=== PATIENT | male | born 1975 | race Caucasian/White ===

== ENCOUNTER 2020-03-03 16:26 | Emergency (ER) | payer BC, SELFPAY ==
[2020-03-03 16:28] VITALS: BP 156/107; PULSE 99; RESP 24; TEMP 36.9; O2SAT 98
[2020-03-03 16:49] LABS: Basophils Absolute Auto 0.03 K/mm3 (0.00-0.10); Basophils Percent Auto 0.4 % (0.0-1.0); Eosinophils Absolute Auto 0.05 K/mm3 (0.02-0.50); Eosinophils Percent Auto 0.7 % (1.0-6.0); Hematocrit 46.7 % (40.0-54.0); Hemoglobin 16.5 g/dL (14.0-18.0); Immature Granulocyte Absolute 0.02 K/mm3 (0.00-0.00); Immature Granulocyte Percent A 0.3 % (0.0-0.0); Lymphocytes Absolute Auto 3.55 K/mm3 (1.10-4.50); Lymphocytes Percent Auto 49.9 % (18.0-42.0); Mean Corpuscular HGB Conc 35.3 g/dL (32.0-36.0); Mean Corpuscular Hemoglobin 32.7 pg (27.0-31.0); Mean Corpuscular Volume 92.5 fL (78.0-102.0); Monocytes Absolute Auto 0.75 K/mm3 (0.10-0.90); Monocytes Percent Auto 10.5 % (2.0-11.0); Neutrophils Absolute Auto 2.7 K/mm3 (1.7-7.2); Neutrophils Percent Auto 38.2 % (50.0-70.0); Platelet Count Result 200 K/mm3 (150-420); Red Blood Count 5.05 M/mm3 (4.70-6.10); Red Cell Distribution Width 14.1 % (11.6-14.4); White Blood Count 7.1 K/mm3 (4.8-10.8)
[2020-03-03] MEDS: SODIUM CHLORIDE 0.9% IV 1,000 ML 999 ML IV CONT (16:57)
[2020-03-03 17:13] LABS: Alanine Aminotransferase 100 U/L (16-63); Albumin Level 4.1 g/dL (3.4-5.0); Alkaline Phosphatase 69 U/L (46-116); Anion Gap 14.6 mmol/L (7-16); Aspartate Amino Transferase 75 U/L (15-37); Bilirubin,Total 0.3 mg/dL (0.00-1.00); Blood Urea Nitrogen 6 mg/dL (7-18); Calcium 8.1 mg/dL (8.5-10.1); Carbon Dioxide 30 mmol/L (21-32); Chloride 102 mmol/L (98-108); Estimated CRCL calculation 99 ml/min; Estimated Glomerular Filt Rate > 60; Glucose 117 mg/dL (70-99); Osmolality Calculated 294 mOsm/kg (285-295); Potassium 3.6 mmol/L (3.5-5.1); Sodium 143 mmol/L (136-145); Thyroid Stimulating Hormone 0.17 uIU/mL (0.36-3.74); Total Protein 7.6 g/dL (6.4-8.2)
[2020-03-03 17:15] LABS: Ethanol 350 mg/dL (0-6)
[2020-03-03 17:16] LABS: Acetaminophen 0 ug/mL (10-30); Salicylate 4.7 mg/dL (2.8-20.0)
[2020-03-03 17:33] LABS: Add Urine Microscopic? NO; Appearance Urine Clear (Clear); Bilirubin Urine Negative (Negative); Blood Urine Negative (Negative); Color Urine Yellow (Yellow); Glucose Urine UA Negative (Negative); Ketones Urine Negative (Negative); Leukocyte Esterase Ur Negative LEU/UL (Negative); Nitrate Urine Negative (Negative); Protein Urine Negative (Negative); Urobilinogen Urine 0.2 mg/dL (0.2-1.0)
[2020-03-03 17:40] LABS: Amphetamine Screen Urine Negative (Negative); Barbiturate Screen Urine Negative (Negative); Benzodiazepines Screen Urine Negative (Negative); Cannabinoid Screen Urine Negative (Negative); Cocaine Screen Urine Negative (Negative); Methadone Screen Urine Negative (Negative); Opiate Screen Urine Negative (Negative); Phencyclidine Screen Urine Negative (Negative)
--- NOTE | 2020-03-03 17:51 | ED.PSYCH ---
HPI - Psych General Chief Complaint: Psychiatric Symptoms Stated Complaint: AMB Source: patient and EMS Mode of arrival: EMS Limitations: intoxication History of Present Illness HPI Narrative: This is a 44-year-old gentleman presents with a history of alcohol abuse, and has been drinking throughout the day with current alcohol 350, he was brought in via EMS with with confusion and intoxication. The patient did try to go to rehab facility at [facility] in [place] but was told to home because he had a low-grade fever. Was at a [employer] motel and apparently was drinking with a friend and became an intoxicated and was brought in by EMS after the friend called for help. Currently the patient is not suicidal repeatedly asking the patient and repeatedly denied any suicidal intent. Onset (ago): hour(s) Duration: constant History of same: Yes Relieving factors: none Exacerbating factors: alcohol Context: recent alcohol abuse Associated psychiatric symptoms: delusions Associated symptoms: confusion Treatments prior to arrival: none Related Data Home Medications Medication Instructions Recorded Confirmed hydroxyzine HCl 10 mg PO TID 03/03/20 03/03/20 lisinopril 40 mg PO DAILY 03/03/20 03/03/20 Allergies Allergy/AdvReac Type Severity Reaction Status Date / Time No Known Allergies Allergy Verified 03/03/20 17:10 Review of Systems Review of Systems: All systems reviewed & are unremarkable except as noted in HPI and below PMFSH Past Medical History Medical History Alcohol abuse Exam Const: General: no acute distress and confusion Orientation/consciousness: patient oriented x3 HENMT: Head: normal to inspection Eyes: Conjunctivae: conjunctivae normal Pupils: Equal, round and reactive pupils present Neck: Neck: normal visual inspection Chest: Chest palpation & inspection: normal inspection of the chest Resp: Effort & Inspection: normal respiratory effort Auscultation: clear to auscultation bilaterally Cardio: Rate: regular rate Rhythm: regular rhythm GI: GI Palp: Yes Soft to palpation Percussion: Yes normal to percussion : Testes: Testes normal Skin: General skin exam: normal color Other: has a laceration to his right forearm that is 1-week-old Neuro: General: moves all extremities, no meningeal signs and no focal motor deficits Speech: normal speech Extrem: General: normal to inspection and no pedal edema Psych: Appearance: disheveled Thought content: Yes delusions and Yes Ideas of reference present (thought content) Course Course Emergency Course: after re-evaluation the patient's alcohol level is some 350 the patient stated that he wanted to be admitted to alcohol rehab but was denied because of mildly elevated temperature. Patient is agreeable to observation and after his alcohol level was reassessed in the morning [facility] has a bed awaiting his arrival at around 10 in the morning. Vital Signs Vital signs: Vital Signs Temperature 36.9 C 03/03/20 16:28 Pulse Rate 99 03/03/20 16:28 Respiratory Rate 24 H 03/03/20 16:28 Blood Pressure 156/107 H 03/03/20 16:28 Pulse Oximetry 98 03/03/20 16:28 Temperature 36.9 C 03/03/20 16:28 Pulse Rate 99 03/03/20 16:28 Respiratory Rate 24 H 03/03/20 16:28 Blood Pressure 156/107 H 03/03/20 16:28 Pulse Oximetry 98 03/03/20 16:28 MDM - Psych Lab Data Result diagrams: 03/03/20 16:45 03/03/20 16:45 Labs: Lab Results 03/03/20 03/03/20 03/03/20 Range/Units 16:45 16:45 16:45 WBC 7.1 (4.8-10.8) K/mm3 RBC 5.05 (4.70-6.10) M/mm3 Hgb 16.5 (14.0-18.0) g/dL Hct 46.7 (40.0-54.0) % MCV 92.5 (78.0-102.0) fL MCH 32.7 H (27.0-31.0) pg MCHC 35.3 (32.0-36.0) g/dL RDW 14.1 (11.6-14.4) % Plt Count 200 (150-420) K/mm3 MPV 8.0 L (8.7-11.0) fl Immature Gran % (Auto) 0.3 H (0.0-0.0) % Neut % (Auto) 38.2 L (50.0-70.0) % Lymph % (Auto)
[2020-03-03 18:08] VITALS: RESP 15
== END 2020-03-03 18:11 | disposition left against medical advice (07) ==
PROVIDERS: Emergency Provider Emergency Medicine; PCP Family Medicine
DX: F10.129 Alcohol abuse with intoxication, unspecified (principal)
CPT/HCPCS: 36415; 80053; 80307; 81003; 84443; 85025; 96360; 99282; 99283; J7030

== ENCOUNTER 2023-03-07 20:19 | Emergency (ER) | payer OTHER, SELFPAY ==
[2023-03-07 20:34] VITALS: BP 155/97; PULSE 92; RESP 17; TEMP 37.1; O2SAT 100
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
--- NOTE | 2023-03-07 20:40 | PC.NURSE ---
At 2039, patient informed Md Vaughn that he was suicidal. This staff member performed a second psychiatric assessment. this staff member asked the patient if he was having thoughts of harming himself. pt stated, Yeah, I guess I am. this staff member asked the patient how he planned to harm himself, pt stated, Jumping. this staff member asked the patient, what do you mean jumping? pt stated, Jump off a bridge. that would do it. pt denies hearing voices. pt states, I don't know if I am hearing voices or if they are my thoughts. pt states, I feel like my thoughts pull or push me to go places which is why I went to [place].
[2023-03-07 20:58] LABS: Basophils Absolute Auto 0.04 K/mm3 (0.00-0.10); Basophils Percent Auto 0.5 % (0.0-1.0); Eosinophils Absolute Auto 0.05 K/mm3 (0.02-0.50); Eosinophils Percent Auto 0.7 % (1.0-6.0); Hematocrit 42.4 % (40.0-54.0); Hemoglobin 15.2 g/dL (14.0-18.0); Immature Granulocyte Absolute 0.03 K/mm3 (0.00-0.00); Immature Granulocyte Percent A 0.4 % (0.0-0.0); Lymphocytes Absolute Auto 1.87 K/mm3 (1.10-4.50); Lymphocytes Percent Auto 24.6 % (18.0-42.0); Mean Corpuscular HGB Conc 35.8 g/dL (32.0-36.0); Mean Corpuscular Hemoglobin 32.3 pg (27.0-31.0); Mean Corpuscular Volume 90.2 fL (78.0-102.0); Mean Platelet Volume 8.3 fl (8.7-11.0); Monocytes Absolute Auto 0.71 K/mm3 (0.10-0.90); Monocytes Percent Auto 9.3 % (2.0-11.0); Neutrophils Absolute Auto 4.9 K/mm3 (1.7-7.2); Neutrophils Percent Auto 64.5 % (50.0-70.0); Platelet Count Result 271 K/mm3 (150-420); Red Cell Distribution Width 12.3 % (11.6-14.4); White Blood Count 7.6 K/mm3 (4.8-10.8)
[2023-03-07 21:02] LABS: Appearance Urine Clear (Clear); Bilirubin Urine 1+ (Negative); Blood Urine Negative (Negative); Color Urine Yellow (Yellow); Glucose Urine UA Negative (Negative); Ketones Urine Negative (Negative); Leukocyte Esterase Ur Negative LEU/UL (Negative); Nitrate Urine Negative (Negative); Protein Urine Negative (Negative); Specific Grav Ur 1.025 (1.010-1.020); Urobilinogen Urine 0.2 mg/dL (0.2-1.0); pH Urine 5.5 (5.0-8.0)
[2023-03-07 21:09] LABS: Add Urine Microscopic? YES; Bacteria Urine None seen /hpf; Mucus Urine Rare /lpf; RBC Urine 0-2 /hpf (0-2); Squamous Epithelial Cell Urine None seen /hpf (Few); WBC Urine 0-3 /hpf (0-3)
[2023-03-07 21:11] LABS: Amphetamine Screen Urine Negative (Negative); Barbiturate Screen Urine Negative (Negative); Benzodiazepines Screen Urine Negative (Negative); Cannabinoid Screen Urine Positive (Negative); Cocaine Screen Urine Negative (Negative); Methadone Screen Urine Negative (Negative); Opiate Screen Urine Negative (Negative); Phencyclidine Screen Urine Negative (Negative)
[2023-03-07 21:19] LABS: SARS-CoV-2 Ag Negative (Negative)
[2023-03-07 21:22] LABS: Alanine Aminotransferase 42 U/L (16-63); Alkaline Phosphatase 60 U/L (46-116); Anion Gap 10 mmol/L (8-16); Aspartate Amino Transferase 25 U/L (15-37); Bilirubin,Total 0.9 mg/dL (0.00-1.00); Blood Urea Nitrogen 8 mg/dL (7-18); Calcium 8.6 mg/dL (8.5-10.1); Carbon Dioxide 26 mmol/L (21-32); Chloride 98 mmol/L (98-108); Estimated CRCL calculation 89 ml/min; Estimated Glomerular Filt Rate > 60; Glucose 129 mg/dL (70-99); Osmolality Calculated 278 mOsm/kg (285-295); Potassium 3.1 mmol/L (3.5-5.1); Sodium 134 mmol/L (136-145); Thyroid Stimulating Hormone 0.59 uIU/mL (0.36-3.74); Total Protein 7.1 g/dL (6.4-8.2)
[2023-03-07 21:33] LABS: Ethanol < 3 mg/dL (0-6)
--- NOTE | 2023-03-07 22:02 | PC.NURSE ---
Rom from [place] contacted and will traveling to the ER to evaluate the patient. Rom did not provide an ETA.
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
[2023-03-07] MEDS: POTASSIUM BICARBONATE 25 MEQ TABEF 50 MEQ PO (22:09)
--- NOTE | 2023-03-07 22:12 | PC.NURSE ---
pt stated, I am having racing thoughts about random stuff. My mind just keeps running. this staff member asked the patient to describe his racing thoughts. pt stated, I keep having random thought about being Larry and other just random stuff that I can't explain.
--- NOTE | 2023-03-07 23:19 | PC.NURSE ---
Rom from [facility] in ER at this time
--- NOTE | 2023-03-08 01:11 | PC.NURSE ---
COVID PCR nasal swab sent to lab
[2023-03-08 01:51] LABS: Influenza A QL RT-PCR Negative (Negative); Influenza B QL RT-PCR Negative (Negative); SARS-CoV-2 RNA PCR Negative (Negative)
[2023-03-08 02:00] LABS: RSV RNA, RT-PCR Negative (Negative)
--- NOTE | 2023-03-08 04:13 | PC.NURSE ---
Brina at [facility] called to inform this staff member that the patient has been accepted. Accepting physician is Md Duncan, pt can arrive after 11:30AM, and nurse to nurse report can be completed after 0830AM, call [phone] to complete nurse to nurse report. [facility], [address] [place] [id number].
--- NOTE | 2023-03-08 04:54 | PC.NURSE ---
Rom from [facility] departed ER
[2023-03-08 07:10] VITALS: BP 141/94; PULSE 89; RESP 17; TEMP 36.3; O2SAT 96
--- NOTE | 2023-03-08 07:10 | PC.NURSE ---
Patient Arnegard scale reassessment complete. patient denies any suicidal ideation at this time. states he is just very stressed and confused at the events that have occurred over the past two weeks and needs to work through them.
[2023-03-08] MEDS: NICOTINE (*PBKC) 21 MG PATCH 1 PATCH TRANSDERM (07:25)
[2023-03-08 11:30] VITALS: BP 142/99; PULSE 85; RESP 16; TEMP 36.5; O2SAT 100
[2023-03-08 12:32] VITALS: BP 142/99; PULSE 85; RESP 16; TEMP 36.5; O2SAT 100
== END 2023-03-08 12:37 ==
PROVIDERS: Emergency Provider Emergency Medicine
DX: R45.851 Suicidal ideations (principal); Z20.822 Contact with and (suspected) exposure to COVID-19
CPT/HCPCS: 36415; 80053; 80307; 81001; 84443; 85025; 87426; 87637; 99285; A9270; C9803